=== PATIENT | female | born 1970 | race Caucasian/White ===

== ENCOUNTER → 2024-03-04 | Outpatient (CLI) | payer MEDICAID, SELFPAY ==
--- NOTE | 2024-03-04 15:00 | XR_ITS ---
Examination: CT cervical spine without contrast 2-D sagittal reconstructions 2-D coronal reconstructions 3-D reconstructions. Exam date and time:February 222023 1514 hours Comparison 11/28/2022 INDICATIONS: Neck pain one year CTDI:vol (mGy) 17.7 DLP: (mGycm) 424 Technique: Multiple 2 mm axial sections of the cervical spine have been obtained. The coronal and sagittal reconstructions have been obtained. 3-D reconstructions have been obtained. Low dose protocols were performed. One or more of the following dose reduction techniques were used; automated exposure control, adjustment of the mA and/or KV according to patient size, use of iterative reconstruction technique. Findings: Axial sections demonstrate intact base of the skull Cervical fusion C5-T1 with satisfactory alignment C2-C3 moderate left neural foraminal stenosis C4-C5 moderate bilateral neural foraminal stenosis C5-C6 advanced left neural foraminal stenosis. C1 exhibit satisfactory relationship to the odontoid. No acute cervical vertebral body fracture seen. Alignment posterior spinous processes satisfactory. Impression: No acute cervical fracture. Satisfactory alignment cervical fusion C2-C3 moderate left neural foraminal stenosis C4-C5 moderate bilateral neural foraminal stenosis C5-C6 advanced left neural foraminal stenosis
== END | disposition home or self-care (01) ==
PROVIDERS: PCP Physician Assistant; Referring Provider Physician Assistant; Visit Provider Physician Assistant
DX: M48.02 Spinal stenosis, cervical region (principal); M43.22 Fusion of spine, cervical region
CPT/HCPCS: 72125

== ENCOUNTER → 2024-03-15 | Outpatient (CLI) | payer MEDICAID, SELFPAY ==
--- NOTE | 2024-03-15 10:30 | XR_ITS ---
Examination: MRI cervical spine without intravenous contrast Date and time of exam: March 15, 2024 1113 hours INDICATIONS: Neck pain 10 years, history 2 cervical spine surgical repair as the last December 2022, persistent neck pain radiating to the arms numbness and paresthesias in the arms Technique: Multiple axial and sagittal sections of the cervical spine to been obtained. T2 weighted sagittal sections, TR 3, 270, TE 117 T1-weighted sagittal sections, TR 500, TE 11 T1-weighted axial sections, TR 607, TE 12, axial sections TR 18, TE 27 and T2 weighted transverse sections, TR 3920, TE 122. Findings: Large hyperintense mass consistent with fluid collection in the soft tissue posterior to C5-T1 measuring 5.7 cm cephalocaudad dimension 2.5 cm AP dimension, 7.5 cm mediolateral dimension Cervical fusion C5-T2 with anatomic alignment Magnetic susceptibility artifact severely degrades scan image quality at these levels No significant spinal stenosis depicted No localized enlargement cervical cord IMPRESSION: The patient's extensive cervical fusion severely limits image quality Adequate alignment at the patient's cervical fusion No significant acquired spinal stenosis Large presumably postop fluid collection in the soft tissue posterior to C5-T1, measuring 5.7 x 2.5 x 7.5 cm, clinical correlation advised
== END | disposition home or self-care (01) ==
LOC: SMRI 10:12
PROVIDERS: PCP Physician Assistant; Referring Provider Physician Assistant; Visit Provider Physician Assistant
DX: M43.22 Fusion of spine, cervical region (principal)
CPT/HCPCS: 72141

== ENCOUNTER → 2024-06-15 | Outpatient (CLI) | payer MEDICAID, SELFPAY ==
--- NOTE | 2024-06-15 08:30 | XR_ITS ---
MRI shoulder, right, without contrast. Date and time: June 15, 2024 0940 hours INDICATIONS: Right shoulder pain radiating down the right arm beginning 9 months ago burning sensation in the shoulder Technique: Multiple axial, sagittal and coronal sections of the shoulder have been obtained. Siemens high-resolution 1.5 Mary MRI scanner is utilized. Axial fat-suppressed sections, TR 2350, TE 18 T2-weighted coronal fat-saturated images, TR 3500, TE 7100 T1-weighted coronal images, TR 500, TE 15 T2-weighted sagittal fat-saturated images, TR 3500, TE 57 T1-weighted sagittal sections, TR 504, TE 13. Findings: Supraspinatus tendon insertion is abnormal, tiny full-thickness tear, coronal image 10, measuring 1.5 mm in thickness. Infraspinatus tendon insertion is intact. Subscapularis insertion is intact. Subscapularis bursa is not seen. Long head of the biceps is in the bicipital groove. No definite tear of the biceps superior labral anchor is seen. Retraction of the musculotendinous junction of the rotator cuff is not seen . Tendinosis pattern is moderate. Distance between the acromium and humeral head is 4.4 mm Atrophy of the supraspinatus muscle is moderate. Atrophy of the infraspinatus muscle is mild. Sagittal sections demonstrate a horizontal acromion. Acromioclavicular joint demonstrates mild osteoarthritis . Osacromiale is not identified. No labral tears. Bony glenoid fossa on the sagittal sections does not demonstrate osseous defect. Occult fracture or area of avascular necrosis is not seen. Acromioclavicular joint separation is not visible. Defect in the posterolateral margin of the humeral head is not seen Impression: Tiny full-thickness tear of the supraspinatous Rotator cuff impingement syndrome
== END | disposition home or self-care (01) ==
LOC: SMRI 08:13
PROVIDERS: PCP Physician Assistant; Referring Provider Physical Medicine & Rehabilitation Pain Medicine; Visit Provider Physical Medicine & Rehabilitation Pain Medicine
DX: M75.101 Unspecified rotator cuff tear or rupture of right shoulder, not specified as traumatic (principal)
CPT/HCPCS: 73221

== ENCOUNTER 2024-06-29 08:25 | Day surgery (SDC) | payer MEDICAID, SELFPAY ==
--- NOTE | 2024-06-25 18:23 | ESHP_ITS ---
RE: IMANI HANSEN : 1970 DATE OF ADMISSION: 06/29/2024 HISTORY OF PRESENT ILLNESS: This is a 54-year-old 4 para 4 with abnormal uterine bleeding and endometrial polyps, who presents for endometrial polyp removal and NovaSure endometrial ablation. ALLERGIES: SULFA. MEDICATIONS: See extensive list. PAST MEDICAL HISTORY: Type 2 diabetes, hypertension, fibromyalgia, irritable bowel syndrome, mitral valve prolapse, depression, anxiety, asthma, chronic back pain, seasonal allergies, hyperlipidemia, and migraine headaches. FAMILY HISTORY: Mother and sister have migraine headaches. Mother has osteoporosis. Father has prostate cancer. Maternal aunt has ovarian cancer. SOCIAL HISTORY: She denies any alcohol, drug use or smoking. PAST SURGICAL HISTORY: Denies. REVIEW OF SYSTEMS: She denies any chest pain, palpitations, cough, fever, shortness of breath or lower extremity pain. PHYSICAL EXAMINATION: VITAL SIGNS: Blood pressure 129/82, heart rate 76, respirations 18, temperature is 98.2, and weight 225 pounds. HEENT: Oropharynx is clear. LUNGS: Clear to auscultation bilaterally. HEART: Regular rate and rhythm. ABDOMEN: Nontender. PELVIC: Deferred. EXTREMITIES: Nontender. SKIN: No gross rashes or lesions. NEUROLOGIC: No focal deficit. ASSESSMENT AND PLAN: Abnormal uterine bleeding and endometrial polyps. Plan is hysteroscopy, fractional dilatation and curettage, MyoSure removal of endometrial polyps, and NovaSure endometrial ablation. Informed consent was obtained. The patient was made aware of the risks, complications, alternatives, and benefits of the proposed procedure and she agrees. She is aware of the risk of injury to bowel, bladder, adjacent organs, uterus, pulmonary embolism, deep vein thrombosis, pelvic infection, reoperation to repair injury to internal organs, anesthesia complications, possibility that laparotomy needs to be performed to repair organs or control bleeding, and the possibility that procedure is not able to be completed due to severe adhesions or technical difficulties. She verbalized understanding and agrees to proceed with the procedure with an understanding of the risks and complications. DT: 17:05:54 TT: 18:22:00 Ref: [id number] - TID: [id number] MTDD
--- NOTE | 2024-06-28 07:00 | EKG_ITS ---
[facility] Test Date: 2024-06-28 Pat Name: IMANI HANSEN Department: Room: - Gender: Female Database Marketing Specialist: SERGIO : 1970 Requested By: Nav Myers Order Number: [id number] Reading MD: Nav Myers Measurements Intervals [place] Rate: 80 P: 23 VA: 170 QRS: 2 QRSD: 88 T: 26 QT: 390 QTc: 453 Interpretive Statements SINUS RHYTHM POSSIBLE LEFT ATRIAL ENLARGEMENT [-0.1mV P WAVE IN V1/V2] LOW QRS VOLTAGE IN PRECORDIAL LEADS [QRS DEFLECTION < 1.0 mV IN CHEST LEADS] POSSIBLE ANTERIOR MYOCARDIAL INFARCTION , OF INDETERMINATE AGE [30 ms Q WAVE IN V3/V4, OR R < 0.2 mV IN V4] POSSIBLE INFERIOR MYOCARDIAL INFARCTION , PROBABLY OLD [30 ms Q WAVE IN II/aVF] MODERATE T-WAVE ABNORMALITY, CONSIDER LATERAL ISCHEMIA [-0.1+ mV T WAVE IN I/aVL/V5/V6] Compared to ECG 01/07/2022 13:40:28 T-wave abnormality now present Possible ischemia now present Myocardial infarct finding still present /store/S0/[id number].pdf
[2024-06-28 09:08] VITALS: BMI 41.0
[2024-06-28 09:39] LABS: Basophils # (Auto) 0.1 Thou/mm3 (0.0-0.2); Basophils % (Auto) 1 % (0-2.5); Eosinophils # (Auto) 0.3 Thou/mm3 (0.0-0.5); Eosinophils % (Auto) 3 % (0-10); Hematocrit 42.6 % (36.0-46.0); Hemoglobin 13.9 g/dL (12.0-16.0); Immature Granulocytes % (Auto) 0 % (0-0); Immature Granulocytes Auto 0.02 Thou/mm3 (0.00-0.00); Lymphocytes # (Auto) 2.2 Thou/mm3 (1.0-4.8); Lymphocytes % (Auto) 28 % (10-50); Mean Corpuscular HGB Conc 32.6 g/dl (31.0-37.0); Mean Corpuscular Hemoglobin 28.5 pg (25.0-35.0); Mean Corpuscular Volume 88 fL (80-100); Monocytes # (Auto) 0.6 Thou/mm3 (0.0-0.8); Monocytes % (Auto) 7 % (0-12); Neutrophils # (Auto) 4.9 Thou/mm3 (1.8-7.7); Neutrophils % (Auto) 61 % (37-80); Nucleated Red Blood Cell % 0 /100 WBC (0); Platelet Count 386 Thou/mm3 (140-440); Red Blood Count 4.87 Miln/mm3 (4.00-5.20); White Blood Count 8.1 Thou/mm3 (3.6-11.0)
[2024-06-28 09:55] LABS: Partial Thromboplastin Time 24.7 Seconds (22.0-36.0); Prothrombin Time 10.9 Seconds (9.0-12.2)
[2024-06-28 12:31] LABS: Alanine Aminotransferase 42 U/L (10-49); Albumin, Serum 4.5 gm/dL (3.5-5.0); Albumin/Globulin Ratio 1.8 (1.2-2.2); Alkaline Phosphatase 87 U/L (46-116); Aspartate Amino Transferase 28 U/L (0-34); BUN/Creatinine Ratio 15 Ratio (12-20); Beta HCG,Quantitative 2 mIU/mL (<5.0); Bilirubin,Total 0.6 mg/dL (0.3-1.2); Blood Urea Nitrogen 15 mg/dL (9-23); Chloride 102 mMol/L (98-107); Estimated Creatinine Clearance 72.7 mL/min (>60); Globulin 2.5 gm/dL (2.3-3.5); Glucose 250 mg/dL (74-106); Osmolality,Calculated 288 (275-295); Potassium 4.4 mMol/L (3.4-5.1); Sodium 140 mMol/L (136-145); eGFR > 60 See Note
[2024-06-28 12:37] LABS: Anion Gap 13 (7-16); Calcium 9.4 mg/dL (8.3-10.6); Calcium (Corrected) 9.4 mg/dL (8.5-10.1); Carbon Dioxide 24.9 mMol/L (20.0-31.0)
[2024-06-29] VITALS (8 sets, daily range): BP systolic 116–144; BP diastolic 82–97; PULSE 75–82; RESP 13–20; TEMP 36.3–36.6; O2SAT 95–100; BMI 40.8
--- NOTE | 2024-06-29 11:09 | SUR.PHASEI ---
1102 patient arrived to recovery room s/p hysteroscopy, D&C, peripad dry with no active vaginal bleeding. pt arrived with oral airway in place, oral airway removed on arrival to PACU. Report received from Namita VILLAFANA and Shelia MEDINA/Avis SARAVIA
--- NOTE | 2024-06-29 11:15 | SUR.PHASEI ---
pt resting in [facility] with eyes closed, VS stable, report from Luciana VILLAFANA
--- NOTE | 2024-06-29 11:19 | SUR.PHASEI ---
1115 report given to Hilda Edge RN
--- NOTE | 2024-06-29 11:30 | SUR.PHASEI ---
pt tolerating ice chips without difficulty swallowing or n/v
--- NOTE | 2024-06-29 12:14 | SUR.PHASEII ---
pt awake, alert, able to follow commands, breathing unalbored, VS stable, peripad in place-clean and dry, discharge instructions given with spouse present, all questions answered, pt and spouse verbalize understanding of discharge paperwork, pt able to dress self and ambulate to bathroom with steady gait, pt discharged via wheelchair with all belongings and copies of discharge paperwork.
--- NOTE | 2024-06-29 16:39 | ESOP_ITS ---
RE: IMANI HANSEN : 1970 DATE OF OPERATION: 06/29/2024 PREOPERATIVE DIAGNOSES: Abnormal uterine bleeding and endometrial polyp. POSTOPERATIVE DIAGNOSES: Abnormal uterine bleeding and endometrial polyp. PROCEDURES PERFORMED: Hysteroscopy and fractional dilatation and curettage. SURGEON: Alexander Giraldo DO. ANESTHESIA: General. ANESTHESIOLOGIST: Avis Grier CRNA. ESTIMATED BLOOD LOSS: 5 mL. COMPLICATIONS: None. COUNTS: Correct. PATHOLOGY: Endocervical curettings and endometrial curettings with endometrial polyp. FINDINGS: Cervical stenosis, endometrial polyp measuring 7 x 6 mm, and intrauterine adhesions. Uterus sounded to 9 cm. Cervical length was 3.0 cm. Uterine cavity width was less than 2.5 cm preventing endometrial ablation. DESCRIPTION OF PROCEDURE: After proper informed consent was obtained and the patient made aware of the risks, complications, alternatives, and benefits of the proposed procedure, she was taken to the operating room where she underwent induction of general anesthesia. She was placed in the dorsal lithotomy position. She was prepped and draped in the usual sterile fashion. A timeout was performed. A speculum was placed in the vagina. A single-tooth tenaculum was used to grasp the anterior lip of the cervix. The cervix was stenotic. Therefore, the 3-mm hysteroscope was then utilized to visualize the endocervix and the uterine cavity. An endometrial polyp was noted in the mid posterior aspect of the uterine cavity. The endocervix was curetted with the Kevorkian curette. Specimen was sent to pathology. The uterine cavity was curetted with 5-mm curette and endometrial polyp was removed with the specimen. The width of the uterine cavity was less than 2.5 cm preventing endometrial ablation. There was no bleeding at the end of the procedure. All instruments were removed from the vagina. The patient was reversed from general anesthesia in supine position and transferred to the recovery room in stable condition. The fluid deficit was 150 mL as approximately 200 mL of fluid was on the floor at the end of the procedure. I discussed with the patient's the nature of her condition, the intraoperative findings, and expectation for recovery. All questions answered. DT: 11:13:43 TT: 16:37:00 Ref: [id number] - TID: [id number]
== END 2024-06-29 12:14 | disposition home or self-care (01) ==
PROVIDERS: PCP Physician Assistant; Referring Provider Specialist; Visit Provider Specialist
PROC: 0UJD8ZZ Inspection of Uterus and Cervix, Via Natural or Artificial Opening Endoscopic (ICD-10-PCS; CPT 58555; principal; 2024-06-29 10:30)
DX: N84.0 Polyp of corpus uteri (principal); E11.9 Type 2 diabetes mellitus without complications; E78.5 Hyperlipidemia, unspecified; G89.29 Other chronic pain; I10 Essential (primary) hypertension; I34.1 Nonrheumatic mitral (valve) prolapse; J45.909 Unspecified asthma, uncomplicated; K58.9 Irritable bowel syndrome, unspecified; M79.7 Fibromyalgia; Z01.810 Encounter for preprocedural cardiovascular examination
CPT/HCPCS: 58563; 36415; 80053; 84702; 85025; 85610; 85730; 86850; 86900; 86901; 93005; A4217; A4649; J0131; J0690; J1100; J2250; J2405; J2704; J3010; J3490

== ENCOUNTER → 2024-09-21 | Outpatient (CLI) | payer MEDICAID, SELFPAY ==
--- NOTE | 2024-09-21 09:30 | XR_ITS ---
Examination: Screening digital mammography, bilateral Computer aided detection 3-D breast Tomosynthesis, bilateral Date and time of exam: September 21, 2024 0905 hours Compared to mammograms dating to May 15, 2020 Indication: Screening Technique: Nonmagnified MLO, CC views of the breasts to been obtained, reconstructed from 3-D Tomosynthesis images. R2 computer aided detection program utilized for evaluation of suspicious masses and/or abnormal calcifications. 3-D Tomosynthesis images obtained. Findings: Scattered areas of fibroglandular density. 15 mm focus architectural distortion upper outer left breast Impression: BI-RADS Category 0: Incomplete: Need additional imaging evaluation Recommend follow-up spot tomographic views of 15 mm focus architectural distortion upper outer left breast as well as bilateral breast sonography to complete the workup.
== END | disposition home or self-care (01) ==
LOC: CDIM 08:56
PROVIDERS: Referring Provider Physician Assistant; Visit Provider Physician Assistant
DX: Z12.31 Encounter for screening mammogram for malignant neoplasm of breast (principal); R92.8 Other abnormal and inconclusive findings on diagnostic imaging of breast
CPT/HCPCS: 77063; 77067

== ENCOUNTER 2024-10-12 21:03 | Emergency (ER) | payer MEDICAID, SELFPAY ==
[2024-10-12 21:05] VITALS: BMI 39.3
--- NOTE | 2024-10-12 21:47 | XR_ITS ---
Examination: PA lateral chest 2 views TECHNIQUE: Upright PA lateral chest 2 views Date and time: October 12, 2024, 2159 hours INDICATIONS: Coughing beginning 10 days ago. FINDINGS: Normal heart size No lobar pneumonia. The osseous structures are intact IMPRESSION: No pneumonia identified
[2024-10-12 22:26] VITALS: BP 148/97; PULSE 98; RESP 20; TEMP 37; O2SAT 97
--- NOTE | 2024-10-12 22:33 | PD.EDSOB ---
ED SOB =RME/HPI General Chief Complaint: Shortness of Breath/Dyspnea Stated Complaint: SOB Time Seen by Provider: 10/12/24 21:53 Arrival date/time: 10/12/24 21:03 54F with history of DM, HTN and asthma presents to ED with 2 week of cough and SOB. Separately, patient has some L facial tingling prior to arrival in ED. Patient denies fevers/chills, AMS, seizures, vision chanbes, N/V, and dizziness. Limitations: no limitations Related Data Home Medications ?Medication ?Instructions ?Recorded ?Confirmed atorvastatin 20 mg tablet 20 mg PO HS 03/14/20 06/29/24 clonazepam 0.5 mg tablet 0.5 mg PO DAILY 03/14/20 06/29/24 albuterol 90 mcg/actuation aerosol 90 mcg inhalation [id number] PRN 01/08/22 06/29/24 inhaler Shortness Of Breath Or Wheezing aripiprazole 2 mg tablet 2 mg PO QDAY 01/08/22 06/29/24 duloxetine 60 mg capsule,delayed 60 mg PO QDAY 01/08/22 06/29/24 release sprinkle fenofibrate 54 mg tablet 54 mg PO QDAY 01/08/22 06/29/24 metoprolol tartrate 25 mg tablet 25 mg PO QDAY 01/08/22 06/29/24 montelukast 10 mg tablet 10 mg PO QPM 01/08/22 06/29/24 (Singulair) nitroglycerin 0.4 mg sublingual 0.4 mg buccal QDAY PRN Chest Pain 01/08/22 06/29/24 tablet oxycodone-acetaminophen 5 mg-325 1 tab PO Q6H PRN Pain 01/08/22 06/29/24 mg tablet tizanidine 4 mg capsule 4 mg PO QDAY 01/08/22 06/29/24 fluticasone furoate 200 1 inh inhalation QDAY 06/28/24 06/29/24 mcg/actuation blister powder for inhalation (Arnuity Ellipta) pregabalin 150 mg capsule 150 mg PO TID 06/28/24 06/29/24 semaglutide 2 mg/dose (8 mg/3 mL) 2 mg subcut QWEEK 06/28/24 06/29/24 subcutaneous pen injector (Ozempic) lisinopril 40 mg tablet 40 mg PO QDAY 06/29/24 06/29/24 Allergies Allergy/AdvReac Type Severity Reaction Status Date / Time Sulfa (Sulfonamide Allergy Severe Hives Verified 10/12/24 21:04 Antibiotics) Review of Systems Review of Systems Systems Reviewed: All systems reviewed, normal except as documented Constitutional Constitutional: Reports system reviewed and no additional complaints, except as documented, Denies fever(s) and Denies headache(s) ENT Ears, Nose, Mouth, and Throat: Denies disequilibrium and Denies headache(s) Cardiovascular Cardiovascular: Reports system reviewed and no additional complaints, except as documented, Denies chest pain and Reports dyspnea Respiratory Respiratory: Reports system reviewed and no additional complaints, except as documented, Reports as per HPI, Reports cough and Reports dyspnea Gastrointestinal Gastrointestinal: Reports system reviewed and no additional complaints, except as documented, Denies abdominal pain, Denies nausea and Denies vomiting Musculoskeletal Musculoskeletal: Reports tingling Neurologic Neurologic: Reports system reviewed and no additional complaints, except as documented, Reports as per HPI, Denies confusion, Denies disequilibrium, Denies headache(s) and Reports tingling Psychiatric Psychiatric: Denies confusion Past Medical History Past Medical History NEUROLOGIC: Positive Neurological Disorders, Kyle's Palsy (RESOLVED) and Migraine; Negative Seizures CARDIAC: Positive Cardiac Disorders, Hypercholesterolemia and Hypertension; Negative Congestive Heart Failure RESPIRATORY: Positive Asthma and Sleep Apnea; Negative Chronic Obstructive Pulmonary Disease (COPD) GASTROINTESTINAL: Positive Gastrointestinal Disorders, Gastroesophageal Reflux Disease and Obesity; Negative Hepatitis GENITOURINARY: Negative Genitourinary Disorders or Renal Disease REPRODUCTIVE: Positive Endometriosis and Previous Pregnancies MUSCULOSKELETAL: Positive Musculoskeletal Disorders and Fibromyalgia ENDOCRINE: Positive Endocrine Disorders and Diabetes Mellitus Type 2; Negative Diabetes Mellitus Type 1 HEMATOLOGIC: Positive Blood Disorders and Anemia; Negative Sickle Cell Disease PSYCHO/SOCIAL: Positive Depression and Anxiety OTHER HISTORY: Positive Blood Transfusions, Chicken Pox and Clostridium Difficile; Negative Hospitalization, Autoimmune Disease, Down Syndrome, Developmental Delay, Shingles, Falls, Blood Transfusion Reaction, Anesthesia Reactions, Organ Transplant, Chemotherapy, Radiation Therapy, Hyperbaric Therapy, MRSA, VRSA, Vancomycin-Resistant Enterococci, Human Immunodeficiency Virus (HIV), Measles, Mumps, Rubella (Surinamese Measles), Pertussis or Cancer Family History FAMILY HISTORY: Positive Family Psychiatric Problems, Family Respiratory Disorders, Family Cardiac Disorders, Family Gastrointestinal Problems, Family Cancer and Family Surgery; Negative Family Anesthesia Reaction Surgical History SURGICAL: Negative Cardiac Surgery, Endocrine Surgery, Ear Surgery, Abdominal Surgery, Nephrectomy, Joint Replacement, Neurologic Surgery, Mastectomy, Lumpectomy, Hysterectomy, Tubal Ligation, Section or Organ Transplant Social History SMOKING STATUS: Never smoker SECOND HAND EXPOSURE: No SUBSTANCE USE: does not use ED Exam General Limitations: Present no limitations General appearance: Present alert and in no apparent distress Head Head exam: Present atraumatic Eye Eye exam: Present normal appearance, PERRL and EOMI ENT ENT exam: Present normal oropharynx and mucous membranes moist Expanded ENT Exam Nose exam: Present sinus tenderness Neck Neck exam: Present normal inspection, full ROM and trachea midline Chest Chest inspection: Present normal inspection and symmetric chest wall rise Respiratory Respiratory exam: Present normal lung sounds bilaterally and prolonged expiratory phase Cardiovascular Cardiovascular exam: Present regular rate, normal rhythm and normal heart sounds Abdominal Exam Abdominal exam: Present soft and normal bowel sounds Extremities Exam Extremities exam: Present normal inspection and full ROM Back Exam Back exam: Present normal inspection and full ROM Neurological Exam Neurological exam: Present alert, oriented X3 and CN II-XII intact Psychiatric Psychiatric exam: Present normal affect and normal mood Skin Skin exam: Present warm, dry, intact and normal color Course Quality Measures none Orders Category Date Time Status Bedside Blood Glucose NOW Care 10/12/24 23:36 Completed Financial Legal Assistant NOW Care 10/12/24 23:36 Completed Continuous Pulse Oximetry NOW Care 10/12/24 23:36 Completed EKG (ED ONLY) *Do not use* NOW Care 10/12/24 23:36 Completed In and Out Catheter NEEDED Care 10/12/24 23:36 Completed Insert IV NOW Care 10/12/24 23:36 Completed MRI Screening NOW Care 10/13/24 02:36 Completed NIH Stroke Scale now Care 10/12/24 23:36 Completed NPO NOW Care 10/12/24 23:36 Completed Nurse Swallow Screen x1 Care 10/12/24 23:36 Completed Consult to Neurology / Tele-Neurology Routine Cons 10/12/24 23:[address] angio stroke protocol Stat Exams 10/12/24 23:[address] stroke protocol Stat Exams 10/12/24 23:36 Completed EKG (ED Only) Stat Exams 10/12/24 23:36 Ordered MR head/brain wo con Stat Exams 10/13/24 Completed XR chest 2V Stat Exams 10/12/24 21:47 Completed Alcohol, Blood Medical Stat Lab 10/12/24 23:36 Completed CBC Stat Lab 10/12/24 23:36 Completed CMP [Comprehensive Metabolic Panel] Stat Lab 10/12/24 23:36 Completed D-Dimer Stat Lab 10/12/24 23:36 Completed Drug Screen,Urine Stat Lab 10/13/24 01:27 Completed HCG Titer if Positive Stat Lab 10/12/24 23:36 Completed Magnesium Stat Lab 10/12/24 23:36 Completed Partial Thromboplastin Time Stat Lab 10/12/24 23:36 Completed Prothrombin Time with INR Stat Lab 10/12/24 23:36 Completed Troponin I Stat Lab 10/12/24 23:36 Completed Troponin I Stat Lab 10/13/24 02:50 Completed Urinalysis Stat Lab 10/13/24 01:27 Completed Urine Culture Stat Lab 10/13/24 01:27 Received Dexamethasone Inj [Decadron Inj] Med 10/12/24 22:27 Discontinued 10 mg PO X1 ONE Labetalol IV [Trandate IV] Med 10/12/24 23:36 Discontinued 10 mg IVP Q15M PRN Meclizine HCl [Antivert] Med 10/13/24 01:25 Discontinued 25 mg PO X1 ONE Ondansetron Inj [Zofran Inj] Med 10/12/24 23:36 Discontinued 4 mg IVP Q4HR PRN Oxygen Delivery NOW RT 10/12/24 23:36 Completed Vital Signs Vital signs: Vital Signs Temperature 98.6 F 10/12/24 22:26 Pulse Rate 98 10/12/24 22:26 Respiratory Rate 20 10/12/24 22:26 Blood Pressure 148/97 H 10/12/24 22:26 Pulse Oximetry (%) 97 10/12/24 22:26 Oxygen Delivery Method Room Air 10/12/24 22:26 O2 at 97% on RA and WNLs Shortness of Breath / Dyspnea MDM Narrative MDM Narrative:: 54F with history of DM, HTN and asthma presents to ED with 2 week of cough and SOB. Separately, patient has some L facial tingling prior to arrival in ED. Patient denies fevers/chills, AMS, seizures, vision chanbes, N/V, and dizziness. Physical exam reveals clear lungs, but prolonged expiration. Normal pupil response and EOM. CN II-XII grossly intact. Gait normal. Speech normal. Some sinus tenderness. Patient is afebrile, calm, and alert. CXR unremarkable. After reassessment 2 hours later, patient states no changes in SOB. Patient states however, her L facial numbness is worse now, there is also some dizziness. Reassessment reveals CN II-XII grossly intact. However, there is now a L pronator drift. Stroke alert called. CT/CTA unremarkable except for L maxillary sinusitis. EKG is sinus tach of 102. Normal trop and D-dimer. No leukocytosis or anemia. CMP unremarkable. Alcohol/drug screen neg. Spoke to [facility]eneuro (see their note) who states unlikely CVA given reasonable explanation for symptoms, namely sinusitis and L shoulder injuries including history of rotator cuff tear. Neuro does not recommend MRI, however patient wants to get it to be sure. Care signed out to Dr. Coronel pending MRI and dispo. Eventually, MRI was done and no CVA. Patient data External records reviewed:: [facility] previous records Clinical information provided by:: patient Social determinants that could affect healthcare access:: none Patient has the following chronic illnesses:: DM, HTN and asthma How is presenting disease/condition affected by chronic disease/condition?: exacerbated by Evaluation data The following diagnostics were reviewed and interpreted by me:: radiology exam(s) Lab and/or radiology exams considered but not ordered:: ordered Interpretation Summary: above Medications / Prescriptions Medications or Prescriptions considered but not ordered:: ordered Medication administrations:: Medication Administration History Discontinued Medications Dexamethasone Sodium Phosphate (Dexamethasone Sod Phos Inj 10 Mg/Ml Vial) 10 mg PO X1 ONE Stop: 10/12/24 22:28 Last Admin: 10/12/24 22:38 Dose: 10 mg Documented By: OA Labetalol HCl (Labetalol Inj 5 Mg/Ml Vial 20 Ml) 10 mg IVP Q15M PRN PRN Reason: HYPER Meclizine HCl (Meclizine Hcl 25 Mg Tablet) 25 mg PO X1 ONE Stop: 10/13/24 01:26 Last Admin: 10/13/24 01:47 Dose: 25 mg Documented By: CB Ondansetron HCl (Ondansetron Inj 2 Mg/Ml Inj 2 Ml) 4 mg IVP Q4HR PRN PRN Reason: NAUSEA OR VOMITING Stop: 11/11/24 23:35 above Consultations Consultation(s) initiated? (list below): No Diagnosis Shortness of Breath Differential Diagnosis: acute exacerbation of chronic obstructive airways disease, congestive heart failure, community acquired pneumonia, asthma with exacerbation, pulmonary embolism and other (asthma exacerbation, sinusitis and paresthesia) Most likely diagnosis given after review of the tests above:: sinusitis and paresthesia Admission Indicated Admission indicated?: not indicated Admission Request Was there a request for admission?: No Disposition Plan Disposition Plan: Discharge Discharge Attestation Discharge Attestation: The patient and all family members were given an opportunity to ask questions and understood the discharge instructions. Discharge instructions specifically effects, indications for sooner follow up or return to the emergency department, and the expected course of current diagnosis. Patient condition: Stable Discharge Plan Plan Patient Disposition: HOME (Self Care) Prescriptions/Referrals Prescriptions/Med Rec: No Action atorvastatin 20 mg tablet 20 mg PO HS Patient Comments: TAKE 1 TABLET BY MOUTH EVERY DAY AT BEDTIME clonazepam 0.5 mg tablet 0.5 mg PO DAILY Patient Comments: TAKE 1 TABLET BY MOUTH TWICE A DAY oxycodone-acetaminophen 5-325 mg Tablet 1 tab PO Q6H PRN (Reason: Pain) nitroglycerin 0.4 mg Tablet, Sublingual 0.4 mg BUCCAL QDAY PRN (Reason: Chest Pain) montelukast [Singulair] 10 mg Tablet 10 mg PO QPM albuterol 90 mcg/actuation Aerosol 90 mcg INHALATION [id number] PRN (Reason: Shortness Of Breath Or Wheezing) metoprolol tartrate 25 mg Tablet 25 mg PO QDAY tizanidine 4 mg Capsule 4 mg PO QDAY aripiprazole 2 mg Tablet 2 mg PO QDAY fenofibrate 54 mg Tablet 54 mg PO QDAY duloxetine 60 mg Capsule, Delayed Rel Sprinkle 60 mg PO QDAY pregabalin 150 mg capsule 150 mg PO TID Patient Comments: take 1 capsule by mouth three times a day Arnuity Ellipta 200 mcg/actuation blister with device 1 inh inhalation QDAY Ozempic 2 mg/dose (8 mg/3 mL) pen injector 2 mg subcut QWEEK lisinopril 40 mg tablet 40 mg PO QDAY Patient Comments: take 1 tablet by mouth once daily for blood pressure Referrals: Sejal Castillo PA-C [Primary Care Provider] - In 1 week Problem List Clinical Impression: Facial paresthesia, Left maxillary sinusitis Patient/Caregiver Discharge Instructions Education Materials: Self-Care for Sinusitis, ED Paraesthesias Print Language: Kinyarwanda Stand Alone Forms: Ariana Award Info., Patient Portal Info Letter
[2024-10-12] MEDS: DEXAMETHASONE SOD PHOS INJ 10 MG/ML VIAL PO (22:38)
--- NOTE | 2024-10-12 23:36 | XR_ITS ---
Examination: CT brain head without contrast. 2-D sagittal coronal reconstructions Date and time of exam:October 12, 2024, 11:40 PM Comparison March 16, 2020 INDICATIONS: Stroke alert, onset dizziness left arm weakness beginning today CTDI: vol (mGy):48.9 DLP: (mGycm):923 Technique: Multiple CT axial sections of the brain have been obtained, 5 mm slice thickness. Contrast has not been administered. 2-D sagittal, coronal reconstructions have been obtained Low dose protocols were performed. One or more of the following dose reduction techniques were used; automated exposure control, adjustment of the mA and/or KV according to patient size, use of iterative reconstruction technique. Findings: No significant ventricular enlargement. Intra-axial or extra-axial hemorrhage density is not seen. No mass effect or midline shift Basal cisterns are not remarkable. Fourth ventricle is midline. Cranial vault intact. Impression: Negative for acute hemorrhage, mass effect or midline shift
--- NOTE | 2024-10-12 23:36 | XR_ITS ---
Examination: CTA carotids with intravenous contrast CTA brain, head with intravenous contrast. 2-D sagittal, coronal reconstructions. 3-D reconstructions. Exam date and time: October 12, 2024, 11:56 PM INDICATIONS: Stroke alert, onset focal neurologic deficit including dizziness and paresthesias around the mouth and left arm weakness beginning 20 minutes ago CTDI: vol (mGy) 11.9 DLP: (mGycm) 412 Technique: Multiple CTA axial brain, head carotid images post intravenous contrast injection 75 cc, [id number]. 2-D sagittal, coronal reconstructions. 3-D reconstructions, 3-D post processing including vascular maximum intensity projection images. Low dose protocols were performed. One or more of the following dose reduction techniques were used; automated exposure control, adjustment of the mA and/or KV according to patient size, use of iterative reconstruction technique. Findings: No significant common carotid carotid bifurcation or internal carotid artery stenoses Dominant left vertebral artery with no critical stenoses Mild thyromegaly with subtle thyroid nodules as well as 8 mm calcified right thyroid nodule No cerebral large vessel arterial occlusions thrombus. Impression: No significant neck arterial stenoses No cerebral large vessel arterial occlusions or thrombus
[2024-10-12 23:51] LABS: Basophils # (Auto) 0.1 Thou/mm3 (0.0-0.2); Basophils % (Auto) 1 % (0-2.5); Eosinophils # (Auto) 0.2 Thou/mm3 (0.0-0.5); Eosinophils % (Auto) 3 % (0-10); Hematocrit 42.9 % (36.0-46.0); Hemoglobin 13.9 g/dL (12.0-16.0); Immature Granulocytes Auto 0.03 Thou/mm3 (0.00-0.00); Lymphocytes # (Auto) 1.6 Thou/mm3 (1.0-4.8); Lymphocytes % (Auto) 25 % (10-50); Mean Corpuscular HGB Conc 32.4 g/dl (31.0-37.0); Mean Corpuscular Hemoglobin 28.1 pg (25.0-35.0); Mean Corpuscular Volume 87 fL (80-100); Monocytes # (Auto) 0.7 Thou/mm3 (0.0-0.8); Monocytes % (Auto) 10 % (0-12); Neutrophils # (Auto) 3.9 Thou/mm3 (1.8-7.7); Neutrophils % (Auto) 61 % (37-80); Nucleated Red Blood Cell # 0.00 Thou/mm3 (0.00-0.00); Nucleated Red Blood Cell % 0 /100 WBC (0); Platelet Count 335 Thou/mm3 (140-440); RDW Standard Deviation 36.8 fL (36.4-46.3); Red Blood Count 4.95 Miln/mm3 (4.00-5.20); White Blood Count 6.4 Thou/mm3 (3.6-11.0)
[2024-10-12 23:55] VITALS: BP 132/108; PULSE 99; RESP 23; O2SAT 98
[2024-10-13] VITALS (7 sets, daily range): BP systolic 140–160; BP diastolic 87–104; PULSE 82–109; RESP 16–26; TEMP 36.4–36.8; O2SAT 95–98
--- NOTE | 2024-10-13 | XR_ITS ---
Examination: MRI brain without intravenous contrast. Date and time of exam: October 13, 2024 0642 hours, comparison December 14, 2020 INDICATIONS: Stroke alert, onset left-sided facial paresthesias facial droop and dizziness today Technique: Multiple axial and sagittal images of the brain obtained. Siemens high-resolution 1.5 Mary short bore scanners utilized. Sagittal sections, T1-weighted, TR 500, TE 14, are performed. Axial sections proton-density and T2-weighted have been obtained. Inversion recovery axial images, TR 9, 260, TE 111, TI 2500. Diffusion weighted images, axial sections, TR 4800, TE 128, B value 1000 Axial sections, ADC map, TR 4800, TE 128 Findings: Enlargement of the sella turcica is not present. The optic chiasm and infundibular are not remarkable. Prepontine and interpeduncular cisterns are not enlarged. There is no localized enlargement of the medulla or jennifer. Fourth ventricle and cerebellar tonsils appear normal in position. No subacute area of hemorrhage density is seen. Mass in the cerebellopontine angle region is not evident. Globes symmetrical. Orbital musculature including medial lateral rectus muscles do not exhibit abnormality. Diffusion-weighted images demonstrate no focus of restricted diffusion. Increased white matter signal not seen Mass effect upon the ventricular system is not identified. Impression: Negative for acute hemorrhage or mass effect or midline shift No acute infarct No MR findings diagnostic for demyelinating disease
--- NOTE | 2024-10-13 00:05 | PC.NURSE ---
DR. DAVID FROM [employer] CONSULT AT 1190.
[2024-10-13 00:10] LABS: Alanine Aminotransferase 60 U/L (10-49); Albumin, Serum 4.7 gm/dL (3.5-5.0); Albumin/Globulin Ratio 1.8 (1.2-2.2); Alcohol, Blood Medical < 10.0 mg/dL (0-10.0); Alkaline Phosphatase 106 U/L (46-116); Anion Gap 10 (7-16); Aspartate Amino Transferase 37 U/L (0-34); BUN/Creatinine Ratio 13 Ratio (12-20); Bilirubin,Total 0.4 mg/dL (0.3-1.2); Blood Urea Nitrogen 13 mg/dL (9-23); Calcium 9.9 mg/dL (8.3-10.6); Calcium (Corrected) 9.9 mg/dL (8.5-10.1); Carbon Dioxide 28.9 mMol/L (20.0-31.0); Chloride 101 mMol/L (98-107); Creatinine (Component) 1.0 mg/dL (0.6-1.3); Estimated Creatinine Clearance 73.7 mL/min (>60); Globulin 2.6 gm/dL (2.3-3.5); Glucose 278 mg/dL (74-106); INR 1.0 (0.9-1.3); Magnesium 1.6 mg/dL (1.6-2.6); Osmolality,Calculated 289 (275-295); Partial Thromboplastin Time 25.4 Seconds (22.0-36.0); Potassium 3.9 mMol/L (3.4-5.1); Prothrombin Time 10.7 Seconds (9.0-12.2); Sodium 140 mMol/L (136-145); Total Protein 7.3 gm/dL (5.7-8.2); Troponin I < 0.002 ng/mL (0.0-0.045); eGFR > 60 See Note
[2024-10-13 00:15] LABS: D-Dimer 494 ng/mL (<600)
--- NOTE | 2024-10-13 00:32 | ESCONSULT_ITS ---
Tele Neuro Consultation Consultation Date 10/13/24 Most Recent Vital Signs Last Vital Signs Temp 98.1 F 10/13/24 00:07 Pulse 102 H 10/13/24 00:07 Resp 26 H 10/13/24 00:07 BP 160/98 H 10/13/24 00:07 Pulse Ox 98 10/13/24 00:07 O2 Del Method Room Air 10/13/24 00:07 Laboratory-Coagulation Panel PT 10.7 Seconds (9.0-12.2) 10/12/24 23:36 INR 1.0 (0.9-1.3) 10/12/24 23:36 APTT 25.4 Seconds (22.0-36.0) 10/12/24 23:36 D-Dimer 494 ng/mL (<600) 10/12/24 23:36 Consultation Narrative [facility] Patient Name:???Carolina Mcneil Date of :???1970 Identification Number:??? Date of Service:???10/12/2024 23:42:12 Diagnosis:?R20.8 - Other disturbances of skin sensation Impression: ?Left facial tingling and headache in the setting of recent URI, sinus tenderness and left maxillary sinus disease seen on CT. Possible mild left proximal arm weakness with known history of degenerative disease of the cervical spine and left rotator cuff tear. ?Clinical presentation is most consistent with headache/paresthesias due to local inflammatory changes related to sinusitis. Clinical exam is not consistent with acute stroke, therefore IV thrombolysis was not recommended. ? ?Recommendations: ?- Symptomatic management of headache and sinusitis ? ?No additional neurological recommendations at this time. Our recommendations are outlined below. Recommendations: ? IV Fluids, Normal Saline ? Head of Bed 30 Degrees ? Euglycemia and Avoid Hyperthermia (PRN Acetaminophen) Sign Out: ? Discussed with Emergency Department Provider Advanced Imaging: Advanced imaging has been ordered. Results pending. Metrics: Last Known Well: 10/12/2024 23:30:00 Dispatch Time: 10/12/2024 23:42:12 Initial Response Time: 10/12/2024 23:45:06Symptoms: left facial tingling. Initial patient interaction: 10/12/2024 23:49:21 NIHSS Assessment Completed: 10/13/2024 00:05:20Patient is not a candidate for Thrombolytic. Thrombolytic Medical Decision: 10/13/2024 00:05:38Patient was not deemed candidate for Thrombolytic because of following reasons: other diagnosis suspected mild symptoms, suspect migraine/cervical spine disease. CT Head: I personally reviewed all the CT images that were available to me and it showed: no acute intracranial pathology. Left maxillary sinus disease Primary Provider Notified of Diagnostic Impression and Management Plan on: 10/13/2024 00:20:14 History of Present Illness:Patient is a 54 year old Female. Patient is a 54 year old woman who originally presented to the ED due to asthma exacerbation in the setting of recent cough. Earlier in the day she also noticed mild left facial tingling, however this was not a presenting complaint. Shortly after receiving steroids for asthma exacerbation she developed worsened left facial tingling and left retroorbital headache, as well as dizziness. She was noted to have tenderness to palpation of the left maxillary sinuses. During evaluation for this worsening there was concern for left arm drift as well, prompting stroke alert. Prior history is notable for prior history of Kyle's palsy, cervical spine disease requiring fusion, migraine headaches. Past Medical History: ?Hypertension ?Diabetes Mellitus ?Hyperlipidemia ?Migraine Headaches ?There is no history of Atrial Fibrillation ?There is no history of Stroke ?There is no history of Seizures ?There is no history of Dementia/MCI Other PMH:? Asthma. Chronic neck and back pain. Bilateral rotator cuff tears. Left Kyle's palsy Medications: No Anticoagulant use? No Antiplatelet use Reviewed EMR for current medications Other Medications Pertinent To Assessment Include: Abilify, Arnuity Ellipta, atorvastatin, clonazepam, duloxetine, fenofibrate, lisinopril, metoprolol, montelukast, Ozempic, pregabalin, tizanidine Allergies:? Reviewed Description:?sulfa Social History: Smoking: No Alcohol Use: No Drug Use: No Family History: There is no family history of premature cerebrovascular disease pertinent to this consultation ROS : 14 Points Review of Systems was performed and was negative except mentioned in HPI. Past Surgical History: There Is No Surgical History Contributory To Today?s Visit There Is Surgical History of:? cervical fusion Examination: BP(148/97),?Pulse(98),?Blood Glucose(284) 1A: Level of Consciousness - Alert; keenly responsive?+ 0 1B: Ask Month and Age - Both Questions Right?+ 0 1C: Blink Eyes & Squeeze Hands - Performs Both Tasks?+ 0 2: Test Horizontal Extraocular Movements - Normal?+ 0 3: Test Visual Costa - No Visual Loss?+ 0 4: Test Facial Palsy (Use Grimace if Obtunded) - Minor paralysis (flat nasolabial fold, smile asymmetry)?+ 1 5A: Test Left Arm Motor Drift - No Drift for 10 Seconds?+ 0 5B: Test Right Arm Motor Drift - No Drift for 10 Seconds?+ 0 6A: Test Left Leg Motor Drift - No Drift for 5 Seconds?+ 0 6B: Test Right Leg Motor Drift - No Drift for 5 Seconds?+ 0 7: Test Limb Ataxia (FNF/Heel-Barrett) - No Ataxia?+ 0 8: Test Sensation - Mild-Moderate Loss: Can Sense Being Touched?+ 1 9: Test Language/Aphasia - Normal; No aphasia?+ 0 10: Test Dysarthria - Normal?+ 0 11: Test Extinction/Inattention - No abnormality?+ 0 NIHSS Score:?2 NIHSS Free Text :?Mild facial asymmetry at rest, facial movements symmetric, patient confirms baseline from prior Kyle's. Tingling to light touch in the left face. Does not hold left arm up as high as right, however no drift, and no impairment on FNF testing. ?No nystagmus or dysconjugate gaze. Pre-Morbid Modified Dima Scale:0 Points = No symptoms at all Spoke with :?Dr. Damon This consult was conducted in real time using interactive audio and video technology. Patient was informed of the technology being used for this visit and agreed to proceed. Patient located in hospital and provider located at home/office setting. Patient is being evaluated for possible acute neurologic impairment and high probability of imminent or life-threatening deterioration. I spent total of 50 minutes providing care to this patient, including time for face to face visit via telemedicine, review of medical records, imaging studies and discussion of findings with providers, the patient and/or family. Dr Yanni Wolf [facility] For Inpatient follow-up with [facility] physician please call [facility] at . As we are not an outpatient service for any post hospital discharge needs please contact the hospital for assistance. If you have any questions for the [facility] physicians or need to reconsult for clinical or diagnostic changes please contact us via [facility] at .
[2024-10-13 00:38] LABS: HCG Titer if Positive Negative
--- NOTE | 2024-10-13 00:57 | PRELIM_ITS ---
CT angiogram of the head and neck with intravenous contrast (axial sections with sagittal and coronal reformats) October 12, 2024 2356 hours Clinical History: Focal neuro deficit, stroke suspected Comparison: No prior study is available for comparison. Findings: Head: The internal carotid, middle and anterior cerebral arteries are patent bilaterally. The intracranial vertebral arteries are patent. The vertebrobasilar junction, basilar and posterior cerebral arteries are patent. No evidence of large vessel occlusion, critical stenosis or aneurysm. Neck: The aortic arch to the extent visualized as well as the origins of the right brachiocephalic, left common carotid, and left subclavian arteries are patent. The common carotid arteries, carotid bulbs, and internal and external carotid arteries are patent. The origins of the vertebral arteries are unremarkable. The left vertebral artery is dominant. No evidence of vascular occlusion, critical stenosis, dissection or aneurysm. Degenerative changes of the imaged portions of the spine. Chronic multilevel disc disease. No acute fractures. Spinal fusion hardware noted. 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 Impression: Head: No evidence of large vessel occlusion, critical stenosis or aneurysm. Neck: No evidence of vascular occlusion, critical stenosis, dissection or aneurysm. Heterogenous low right thyroid. Consider correlation with thyroid function tests and ultrasound. Report Electronically Signed By: Royal Esquivel 10/13/2024 12:56:55 AM [EST]
[2024-10-13 01:34] LABS: Collection Type, Urine Clean Catch
[2024-10-13] MEDS: MECLIZINE HCL 25 MG TABLET PO (01:47)
[2024-10-13 01:54] LABS: Amphetamine/Methamp Scrn,U Negative (Negative); Barbiturate Screen,Urine Negative (Negative); Benzodiazepines Screen,Urine Negative (Negative); Benzoylecgonine Screen, Ur Negative (Negative); Fentanyl Screen,Urine Negative (Negative); Opiate Screen,Urine Negative (Negative); THC Screen,Urine Negative (Negative)
[2024-10-13 02:06] LABS: Bilirubin,Urine Negative (Negative); Blood,Urine Negative (Negative); Clarity,Urine Clear (Clear/Hazy); Color,Urine Lt-Yellow (Lt Yel-Yel); Glucose, Urine 4+ (Negative); Ketones,Urine Negative (Negative); Leukocyte Esterase,Urine Negative (Negative); Nitrite,Urine Negative (Negative); PH,Urine 6.0 (5.0-7.0); Protein,Urine Negative (Neg - Trace); RBC,Urine 3 /hpf (0-3); Specific Gravity,Urine > 1.035 (1.001-1.035); Squamous Epithelial Cell,Urine 2 /hpf (0-5); Urobilinogen,Urine Negative mg/dL (0.0-1.0); WBC,Urine 1 /hpf (0-5)
[2024-10-13 03:30] LABS: Troponin I < 0.002 ng/mL (0.0-0.045)
--- NOTE | 2024-10-13 06:51 | EDNOTE_ITS ---
Emergency Room Addendum Addendum Narrative: 0600: Care assumed from ARABELLA Damon, the previous shift emergency physician. Past medical, surgical, social and family history reviewed. Vitals and home medications reviewed. I will assume the care of the patient at this time, pending MRI and final disposition. Please refer to the emergency department record for history and examination from initial visit.?The following addendum documentation note is intended to reflect any pending information, findings, or radiology results not included in the patient?s initial chart. Patient remains clinically stable throughout the emergency department visit. We reviewed all the results, analysis, and treatment plans. Patient is amenable to discharge. Strict return precautions were outlined. Patient was discharged in stable condition. RADIOLOGY Ordering Physician: Win Damon PA-C Date of Service: 10/13/24 Procedure(s): MR head/brain wo con Accession Number(s): [id number] cc: Clayton Will MD; Win Damon PA-C; Sejal Castillo PA-C~ Examination: MRI brain without intravenous contrast. Date and time of exam: October 13, 2024 0642 hours, comparison December 14, 2020 INDICATIONS: Stroke alert, onset left-sided facial paresthesias facial droop and dizziness today Technique: Multiple axial and sagittal images of the brain obtained. Siemens high-resolution 1.5 Mary short bore scanners utilized. Sagittal sections, T1-weighted, TR 500, TE 14, are performed. Axial sections proton-density and T2-weighted have been obtained. Inversion recovery axial images, TR 9, 260, TE 111, TI 2500. Diffusion weighted images, axial sections, TR 4800, TE 128, B value 1000 Axial sections, ADC map, TR 4800, TE 128 Findings: Enlargement of the sella turcica is not present. The optic chiasm and infundibular are not remarkable. Prepontine and interpeduncular cisterns are not enlarged. There is no localized enlargement of the medulla or jennifer. Fourth ventricle and cerebellar tonsils appear normal in position. No subacute area of hemorrhage density is seen. Mass in the cerebellopontine angle region is not evident. Globes symmetrical. Orbital musculature including medial lateral rectus muscles do not exhibit abnormality. Diffusion-weighted images demonstrate no focus of restricted diffusion. Increased white matter signal not seen Mass effect upon the ventricular system is not identified. Impression: Negative for acute hemorrhage or mass effect or midline shift No acute infarct No MR findings diagnostic for demyelinating disease Dictated By:Clayton Will MD Signed By:<Electronically signed by Clayton Will MD in [place]>10/13/24 0739
--- NOTE | 2024-10-13 07:31 | PC.NURSE ---
Received report from Wanda VILLAFANA and assumed care of patient. Patient resting in bed with no complaints and responds appropriately.
== END 2024-10-13 10:14 | disposition home or self-care (01) ==
PROVIDERS: Physician Assistant; Emergency Provider Emergency Medicine; PCP Physician Assistant
DX: J32.0 Chronic maxillary sinusitis (principal); R20.2 Paresthesia of skin; R29.810 Facial weakness; R42 Dizziness and giddiness; R05.9 Cough, unspecified; R53.1 Weakness
CPT/HCPCS: 36415; 70450; 70496; 70498; 70551; 71046; 80053; 80307; 80320; 81001; 83735; 84484; 84703; 85025; 85379; 85610; 85730; 87086; 93005; 99283; A4649; J1100; Q9967; A9270; G0480

== ENCOUNTER → 2024-10-18 | Outpatient (CLI) | payer MEDICAID, SELFPAY ==
--- NOTE | 2024-10-18 15:15 | XR_ITS ---
Examination: MRI cervical spine, without intravenous contrast. MRI cervical spine , with intravenous contrast. Exam date and time: October 18, 2024 1641 hours Comparison March 15, 2024 INDICATIONS: History neck surgery repairs, the last 2022 with persistent neck pain right-sided arm numbness and stiff neck Technique: Multiple axial, sagittal and coronal images of the cervical spine have been obtained with the Siemens high-resolution 1.5 Mary MRI scanner. Images obtained included T2 weighted fat suppressed sagittal sections, TR 3500, TE 46, T2 weighted coronal fat suppressed images, TR 3050, TE 84, T2-weighted transverse fat suppressed images, TR 30-60, TE 63, proton density transverse images, TR 4720, TE 46, and T1 weighted coronal images, TR 560, TE 13. Axial, sagittal and coronal images are obtained post intravenous injection 20 cc gadolinium. Findings: Status post cervical fusion C5 through to T1 with anatomic alignment Diffuse cervical disc desiccation Intact odontoid Extensive magnetic susceptibility artifact at the fusion sites C4-C5 at least 3 mm central cervical disc bulge Stable mass posterior to the lower cervical spine 2.5 x 5.7 cm, consider seroma, hematoma IMPRESSION: Satisfactory alignment postcervical fusion C4-C5 3 mm central cervical disc bulge Stable nonenhancing mass with increased signal on the T2-weighted images in the soft tissue posterior to C5-T1 unchanged, consider postop seroma, hematoma
== END | disposition home or self-care (01) ==
PROVIDERS: PCP Physician Assistant; Referring Provider Neurological Surgery; Visit Provider Neurological Surgery
DX: M43.22 Fusion of spine, cervical region (principal); R22.2 Localized swelling, mass and lump, trunk
CPT/HCPCS: 72156; A9579

== ENCOUNTER → 2025-01-11 | Outpatient (CLI) | payer MEDICAID, SELFPAY ==
--- NOTE | 2025-01-11 12:30 | XR_ITS ---
Examination: Breast ultrasound complete, bilateral Date and time of exam: January 11, 2025, 1232 hours INDICATIONS: Mammogram September 22, 1999 2515 mm focus of architectural distortion upper outer left breast, family history of breast cancer Technique: Real-time grayscale ultrasonographic imaging bilateral breasts, including all 4 quadrants as well as nipple retroareolar and axillary regions. Findings: Sonographic images right breast 12:00 hypoechoic nodule 11 x 10 mm 10 o'clock cyst 6 x 6 mm Sonographic images left breast 2:00 cyst 15 x 16 mm 2:00 cyst 5 x 4 mm No solid nodules IMPRESSION: BI-RADS Category 3: Probably benign findings Recommend 1 additional 6-month right breast sonogram follow-up to document stability of 12:00 nodule described above
--- NOTE | 2025-01-11 13:30 | XR_ITS ---
Examination: Diagnostic digital mammography, unilateral, left Computer aided detection 3-D breast Tomosynthesis, unilateral Date and time of exam: January 11, 2025, 1244 hours INDICATIONS: Mammogram September 21, 2024 15 mm focus architectural distortion upper outer left breast Technique: Nonmagnified MLO, CC views of the left breast have been obtained, reconstructed from 3-D Tomosynthesis images. R2 computer aided detection program utilized for evaluation of suspicious masses and/or abnormal calcifications. 3-D Tomosynthesis images obtained. Findings: Scattered areas of fibroglandular density prominent asymmetry is noted upper left breast MLO view on the spot compression studies Impression: BI-RADS category 0: Incomplete: Need additional imaging evaluation This patient should return for dedicated left breast sonography upper outer quadrant left breast with a radiologist in attendance
== END | disposition home or self-care (01) ==
LOC: CDIM 12:17
PROVIDERS: PCP Physician Assistant; Referring Provider Physician Assistant; Visit Provider Physician Assistant
DX: N63.15 Unspecified lump in the right breast, overlapping quadrants (principal); R92.8 Other abnormal and inconclusive findings on diagnostic imaging of breast
CPT/HCPCS: 76641; 77061; 77065; G0279